=== PATIENT | female | born 1970 | race Two or more races ===

== ENCOUNTER 2021-10-04 18:12 | Inpatient (IN) | payer MEDICAID, OTHER ==
[~2021-10-04] VITALS: Ht 170.2 cm; Wt 67.8 kg
[2021-10-04] MEDS ORDERED: AMMONIA 0.33 ML INHALANT IN ONE (18:27)
[2021-10-04] MEDS ORDERED: DEXTROSE 50% SYRINGE 50 ML IV ONE (18:57)
[2021-10-04] MEDS ORDERED: D5W/SOD CHL 0.45% 1,000 ML IV ONE (20:00)
[2021-10-04] MEDS ORDERED: NALOXONE HCL 1MG/ML 2ML SYRINGE IV ONE (20:00)
[2021-10-04] MEDS ORDERED: SODIUM CHLORIDE 0.9% 1,000 ML IV ONE (20:00)
[2021-10-04 20:42] LABS: Basophils # (auto) 0 10 ^3/uL (0-0.2); Basophils % (auto) 0.8 % (0.0-2.0); Eosinophils # (auto) 0 10 ^3/uL (0-0.8); Eosinophils % (auto) 0.1 % (0.0-7.0); Hematocrit 44.8 % (36.0-46.0); Hemoglobin 14.3 g/dL (12.2-16.2); Lymphocytes # (auto) 1.1 10 ^3/uL (0.4-5.4); Mean Corpuscular Hemoglobin 28.9 pg (28.0-32.0); Mean Corpuscular Hgb Conc. 31.8 g/dL (32.0-36.0); Mean Corpuscular Volume 90.8 fL (80.0-100.0); Monocytes # (auto) 0.4 10 ^3/uL (0-1.3); Monocytes % (auto) 9.6 % (0.0-12.0); Neutrophils # (auto) 2.7 10 ^3/uL (1.6-8.6); Neutrophils % (auto) 63.5 % (37.0-80.0); Nucleated Red Blood Cells % 0.1 %; Red Blood Cells 4.94 10^6/uL (4.0-5.20); Red Cell Distribution Width 16.3 % (11.8-14.3); White Blood Cell 4.2 10^3/uL (4.4-10.8)
[2021-10-04 20:45] LABS: Calcium 9.1 mg/dL (8.5-10.1)
[2021-10-04 20:51] LABS: Albumin 3.9 g/dL (3.4-5.0); BUN/Creatinine Ratio 15.6; Bilirubin, Total 0.7 mg/dL (0.2-1.0); Magnesium 2.7 mg/dL (1.6-2.6); Total Protein 8.2 g/dL (6.4-8.2)
[2021-10-04 22:55] LABS: Urine Bacteria NONE SEEN /hpf (None Seen); Urine Blood Negative /uL (Negative); Urine Specific Gravity 1.014 (1.001-1.035); Urine WBC <1 /hpf (0 - 5)
[2021-10-04 23:11] LABS: Amphetamine Screen, Urine NEGATIVE (NEGATIVE); Barbiturate Scree,Urine NEGATIVE (NEGATIVE); Benzodiazephine Screen, Urine NEGATIVE (NEGATIVE); Cannabinoid Screen, Urine NEGATIVE (NEGATIVE); Cocaine Screen, Urine NEGATIVE (NEGATIVE); Opiate Scree,Urine NEGATIVE (NEGATIVE); Phencyclidine Screen, Urine NEGATIVE (NEGATIVE)
[2021-10-05] MEDS ORDERED: SODIUM CHLORIDE 0.9% 1,000 ML IV ONE (01:15)
[2021-10-05] MEDS: D5W/SOD CHLO 0.9% 1,000 ML IV SCH ×4 (02:45→22:00)
[2021-10-05] MEDS ORDERED: ONDANSETRON HCL 4 MG/2 ML VIAL IV PRN (02:45)
[2021-10-05 03:36] LABS: Basophils # (auto) 0 10 ^3/uL (0-0.2); Basophils % (auto) 0.8 % (0.0-2.0); Eosinophils # (auto) 0 10 ^3/uL (0-0.8); Eosinophils % (auto) 0.8 % (0.0-7.0); Hematocrit 41.4 % (36.0-46.0); Hemoglobin 13.7 g/dL (12.2-16.2); Lymphocytes # (auto) 1.4 10 ^3/uL (0.4-5.4); Lymphocytes % (auto) 34.5 % (10.0-50.0); Mean Corpuscular Hemoglobin 29.6 pg (28.0-32.0); Mean Corpuscular Volume 89.6 fL (80.0-100.0); Monocytes # (auto) 0.4 10 ^3/uL (0-1.3); Monocytes % (auto) 9.8 % (0.0-12.0); Neutrophils # (auto) 2.3 10 ^3/uL (1.6-8.6); Neutrophils % (auto) 54.1 % (37.0-80.0); Nucleated Red Blood Cells % 0.1 %; Red Blood Cells 4.62 10^6/uL (4.0-5.20); Red Cell Distribution Width 16.1 % (11.8-14.3); White Blood Cell 4.2 10^3/uL (4.4-10.8)
[2021-10-05 03:52] LABS: BUN/Creatinine Ratio 11.3; Calcium 8.5 mg/dL (8.5-10.1); Potassium 3.7 mmol/L (3.5-5.1)
[2021-10-05] MEDS ORDERED: D5W/SOD CHL 0.45% 1,000 ML IV ONE (05:45)
[2021-10-05] MEDS ORDERED: DEXTROSE (50%) 50ML SYRG IV ONE (05:45)
[2021-10-05] MEDS ORDERED: diphenhdrAMINE HCL 50 MG/1 ML VL ONE (07:36)
[2021-10-05] MEDS ORDERED: LORazepam 2MG/ML-1ML VIAL ONE (07:36)
[2021-10-05] MEDS ORDERED: HALOPERIDOL LACTATE 5 MG/ML INJ VIAL ONE (07:36)
[2021-10-05] MEDS ORDERED: DEXTROSE (50%) 50ML SYRG IV PRN (08:30)
[2021-10-05] MEDS ORDERED: hydrALAZINE HCL 20 MG/ML VL IV PRN (08:30)
[2021-10-05] MEDS ORDERED: ACETAMINOPHEN 325 MG TAB PO PRN (08:30)
[2021-10-05] MEDS ORDERED: NITROGLYCERIN 0.4 MG SL TAB SL PRN (09:15)
[2021-10-05] MEDS ORDERED: MORPHINE SULFATE INJECTION 2 MG/ML SYRG IV PRN (09:15)
[2021-10-05] MEDS: ENOXAPARIN SOD 40 MG/0.4 ML SYRINGE SC SCH (11:15)
[2021-10-05] MEDS: InsuLIN REG 1unit/0.01ml Soln (100units/ml) SC SCH ×3 (11:16→21:49)
[2021-10-05] MEDS: ACCU-CHEK COMFORT CURVE STRIP VI SCH ×3 (11:16→21:48)
[2021-10-05] MEDS ORDERED: HYDR25TA5 PO (13:17)
[2021-10-05] MEDS ORDERED: ESCI-34 PO (13:17)
[2021-10-05] MEDS ORDERED: TIZA2TAB4 PO (13:17)
[2021-10-05] MEDS ORDERED: DICL1GEL50 TOP (13:17)
[2021-10-05] MEDS ORDERED: OMEP-260 PO (13:17)
[2021-10-05] MEDS ORDERED: HYDR1CAP27 PO (13:17)
[2021-10-05] MEDS ORDERED: LIDO1PAD55 TOP (13:17)
[2021-10-05] MEDS ORDERED: LOSA-39 PO (13:17)
[2021-10-05] MEDS ORDERED: BUSP15TA60 PO (13:17)
[2021-10-05] MEDS ORDERED: [UNRECOGNIZED DRUG - CODE] PO (13:17)
[2021-10-05] MEDS ORDERED: HYDR-4798 PO (13:17)
[2021-10-05] MEDS ORDERED: TOPI25TA84 PO (13:17)
[2021-10-06] MEDS ORDERED: HALOPERIDOL LACTATE 5 MG/ML INJ VIAL IM PRN (06:15)
[2021-10-06] MEDS ORDERED: LORazepam 2MG/ML-1ML VIAL IV PRN ×2 (06:15→07:00)
[2021-10-06] MEDS: InsuLIN REG 1unit/0.01ml Soln (100units/ml) SC SCH ×4 (07:00→21:21)
[2021-10-06] MEDS: ACCU-CHEK COMFORT CURVE STRIP VI SCH ×4 (07:25→21:21)
[2021-10-06 08:00] LABS: Basophils # (auto) 0 10 ^3/uL (0-0.2); Basophils % (auto) 1.2 % (0.0-2.0); Eosinophils # (auto) 0 10 ^3/uL (0-0.8); Eosinophils % (auto) 1.1 % (0.0-7.0); Hematocrit 42.7 % (36.0-46.0); Hemoglobin 13.7 g/dL (12.2-16.2); Lymphocytes # (auto) 1.3 10 ^3/uL (0.4-5.4); Lymphocytes % (auto) 40.3 % (10.0-50.0); Mean Corpuscular Hemoglobin 29.2 pg (28.0-32.0); Mean Corpuscular Volume 91.1 fL (80.0-100.0); Monocytes # (auto) 0.3 10 ^3/uL (0-1.3); Monocytes % (auto) 8.5 % (0.0-12.0); Neutrophils # (auto) 1.5 10 ^3/uL (1.6-8.6); Neutrophils % (auto) 48.9 % (37.0-80.0); Nucleated Red Blood Cells % 0.2 %; Red Blood Cells 4.68 10^6/uL (4.0-5.20); Red Cell Distribution Width 16.3 % (11.8-14.3); White Blood Cell 3.1 10^3/uL (4.4-10.8)
[2021-10-06] MEDS: ENOXAPARIN SOD 40 MG/0.4 ML SYRINGE SC SCH (08:11)
[2021-10-06 08:21] LABS: BUN/Creatinine Ratio 5.3; Calcium 9.1 mg/dL (8.5-10.1); Potassium 3.7 mmol/L (3.5-5.1)
[2021-10-06] MEDS: D5W/SOD CHLO 0.9% 1,000 ML IV SCH ×2 (10:45→17:26)
[2021-10-06] MEDS ORDERED: LORazepam 2MG/ML-1ML VIAL IV ONE (15:15)
[2021-10-06 20:50] VITALS: BP 140/98
[2021-10-06 22:00] VITALS: BP 140/93
[2021-10-07] MEDS: D5W/SOD CHLO 0.9% 1,000 ML IV SCH ×2 (01:06→10:07)
[2021-10-07 04:00] VITALS: BP 128/61
[2021-10-07 05:00] VITALS: BP 118/81
[2021-10-07 05:19] LABS: Basophils # (auto) 0 10 ^3/uL (0-0.2); Basophils % (auto) 1.3 % (0.0-2.0); Eosinophils # (auto) 0.1 10 ^3/uL (0-0.8); Eosinophils % (auto) 2.1 % (0.0-7.0); Hematocrit 38.7 % (36.0-46.0); Hemoglobin 12.8 g/dL (12.2-16.2); Lymphocytes # (auto) 1.5 10 ^3/uL (0.4-5.4); Lymphocytes % (auto) 48.2 % (10.0-50.0); Mean Corpuscular Hemoglobin 29.3 pg (28.0-32.0); Mean Corpuscular Volume 88.9 fL (80.0-100.0); Monocytes # (auto) 0.4 10 ^3/uL (0-1.3); Monocytes % (auto) 12.5 % (0.0-12.0); Neutrophils # (auto) 1.1 10 ^3/uL (1.6-8.6); Neutrophils % (auto) 35.9 % (37.0-80.0); Nucleated Red Blood Cells % 0.1 %; Red Blood Cells 4.35 10^6/uL (4.0-5.20); Red Cell Distribution Width 15.8 % (11.8-14.3); White Blood Cell 3.1 10^3/uL (4.4-10.8)
[2021-10-07 05:48] LABS: BUN/Creatinine Ratio 5.1; Calcium 8.7 mg/dL (8.5-10.1); Potassium 3.7 mmol/L (3.5-5.1)
[2021-10-07] MEDS: InsuLIN REG 1unit/0.01ml Soln (100units/ml) SC SCH ×3 (06:07→17:00)
[2021-10-07] MEDS: ACCU-CHEK COMFORT CURVE STRIP VI SCH ×3 (06:07→17:00)
[2021-10-07 07:53] VITALS: BP 131/93
[2021-10-07] MEDS: ENOXAPARIN SOD 40 MG/0.4 ML SYRINGE SC SCH (10:07)
[2021-10-07 11:40] VITALS: BP 155/99
[2021-10-07 15:35] VITALS: BP 131/93
== END 2021-10-07 16:53 | disposition home health service (06) | DRG 52 ==
LOC: EDBD 18:12 → ER 18:16 → TELE 10-05 09:14 → TELE-CENTR 10-06 20:49
PROVIDERS: ADMIT Internal Medicine; ATTEND Internal Medicine
DX: G92.8 Other toxic encephalopathy (principal); E16.2 Hypoglycemia, unspecified; Z20.822 Contact with and (suspected) exposure to COVID-19
CPT/HCPCS: 36415; 36600; 70450; 71045; 80048; 80053; 80307; 80320; 81001; 82140; 82550; 82805; 82962; 83605; 83735; 84443; 84484; 84702; 85025; 87426; 93005; 96361; 96374; G0378